=== PATIENT | female | born 1965 | race Two or more races ===

== ENCOUNTER 2024-07-04 13:21 | Emergency (ER) | payer BC, SELFPAY ==
[2024-07-04 13:57] VITALS: BP 160/90; PULSE 105; RESP 19; TEMP 37.3; O2SAT 96; BMI 45.7
--- NOTE | 2024-07-04 14:14 | PD.EDANIML ---
ED Animal Bite RME/HPI General Chief Complaint: Animal Bite Stated Complaint: abdominal pain left dt possible insect bite Time Seen by Provider: 07/04/24 13:37 Source: patient Arrival date/time: 07/04/24 13:21 This is a 58-year-old female presents to the emergency department with complaints of redness and tenderness to her left lower abdominal wall. Patient reports that she noticed a small little bump 2 days ago and while dressing she did scratch it accidentally today she lifted her shirt and she had worsening redness prompting her ED visit today. Patient has not had any fever no chills no rigors no abdominal pain no urinary symptoms. Mode of arrival: ambulatory Limitations: no limitations Related Data Previous Rx's ?Medication ?Instructions ?Recorded clindamycin HCl 300 mg capsule 300 mg PO Q8H 7 days #21 caps 07/04/24 mupirocin 2 % topical ointment 1 applic topical BID 7 days #22 07/04/24 grams Allergies Allergy/AdvReac Type Severity Reaction Status Date / Time Sulfa (Sulfonamide Allergy Severe HIVES AND Verified 10/17/12 01:25 Antibiotics) RASH sulfamethoxazole Allergy Severe HIVES AND Verified 10/17/12 01:25 RASH trimethoprim Allergy Severe HIVES AND Verified 10/17/12 01:25 RASH Review of Systems Review of Systems Systems Reviewed: All systems reviewed, normal except as documented Narrative Review of Systems: Gen: No fever, no chills, no weight loss EYES: No discharge, no visual changes, no pain HEENT: No ear pain, no congestion, no sore throat PULM: No shortness of breath, no cough, no congestion CV: No chest pain, no dyspnea on exertion, no palpitations GI: No nausea, no vomiting, no diarrhea, no pain, no constipation : No frequency, no urgency,? no dysuria Musc/skel: No joint pain, no back pain Skin: Cellulitic rash to abdominal wall Psyc: No hallucinations, no depression Heme/Lymph: No easy bleeding or bruising tendencies Neuro: No weakness, no headache ED Exam General Limitations: Present no limitations General appearance: Present alert and in no apparent distress Head Head exam: Present atraumatic Eye Eye exam: Present normal appearance, PERRL and EOMI ENT ENT exam: Present normal exam, normal oropharynx and mucous membranes moist Neck Neck exam: Present normal inspection, full ROM and trachea midline Chest Chest inspection: Present normal inspection and symmetric chest wall rise Respiratory Respiratory exam: Present normal lung sounds bilaterally Cardiovascular Cardiovascular exam: Present regular rate, normal rhythm and normal heart sounds Abdominal Exam Abdominal exam: Present soft, normal bowel sounds and other ( on the left lower quadrant abdominal wall there is a cellulitic pattern of erythemic indurated area approximately 3 cm x 2 on her abdomen noticed no streaking.); Absent distention, tenderness, guarding, rebound or rigidity Extremities Exam Extremities exam: Present normal inspection and full ROM Back Exam Back exam: Present normal inspection and full ROM Neurological Exam Neurological exam: Present alert, oriented X3 and CN II-XII intact Psychiatric Psychiatric exam: Present normal affect and normal mood Skin Skin exam: Present warm, dry, intact and normal color Course Quality Measures none Orders Category Date Time Status Clindamycin Vial [Cleocin vial] Med 07/04/24 14:10 Discontinued 600 mg IM X1 ONE Vital Signs Vital signs: Vital Signs Temperature 99.1 F 07/04/24 13:57 Pulse Rate 105 H 07/04/24 13:57 Respiratory Rate 19 07/04/24 13:57 Blood Pressure 160/90 H 07/04/24 13:57 Pulse Oximetry (%) 96 07/04/24 13:57 Oxygen Delivery Method Room Air 07/04/24 13:57 Animal Bite Patient data External records reviewed:: [facility] previous records Clinical information provided by:: patient Social determinants that could affect healthcare access:: none Patient has the following chronic illnesses:: no How is presenting disease/condition affected by chronic disease/condition?: no chronic disease Evaluation data The following diagnostics were reviewed and interpreted by me:: other (specify) Lab and/or radiology exams considered but not ordered:: Appears to be cellulitis no imaging needed. Interpretation Summary: no Medications / Prescriptions Medications or Prescriptions considered but not ordered:: yes Rx sent to pharmacy Medication administrations:: Medication Administration History Discontinued Medications Clindamycin Phosphate (Clindamycin Phos Inj 150 Mg/Ml Vial 6 Ml) 600 mg IM X1 ONE Stop: 07/04/24 14:11 Last Admin: 07/04/24 15:44 Dose: 600 mg Documented By: all medications administered and effective Consultations Consultation(s) initiated? (list below): No Diagnosis Differential diagnosis animal bite: bite by animal and cat bite Most likely diagnosis given after review of the tests above:: cellulitis to abdominal wall. Admission Indicated Admission indicated?: not indicated Explain why admission is indicated or not indicated:: This can be treated outpatient if no improvement will need to return to the emergency department for further evaluation and workup. Admission Request Was there a request for admission?: No Disposition Plan Disposition Plan: Discharge Discharge Attestation Discharge Attestation: The patient and all family members were given an opportunity to ask questions and understood the discharge instructions. Discharge instructions specifically effects, indications for sooner follow up or return to the emergency department, and the expected course of current diagnosis. Patient condition: Stable Discharge Plan Plan Patient Disposition: HOME (Self Care) Patient condition on transfer: Stable Prescriptions/Referrals Prescriptions/Med Rec: New clindamycin HCl 300 mg capsule 300 mg PO Q8H 7 Days Qty: 21 0RF mupirocin 2 % ointment 1 applic topical BID 7 Days Qty: 22 0RF Referrals: Demarcus Owens MD [Primary Care Provider] - In 1 week Problem List Clinical Impression: Cellulitis, abdominal wall Patient/Caregiver Discharge Instructions Discharge Activity: activity as tolerated Education Materials: ED Cellulitis Additional Instructions: -Please start antibiotic first dose this afternoon. Keep area clean and dry. -Make sure you do warm compresses 15-20 minutes at a time 3 times a day. Then apply the ointment If you do not see any improvement in swelling or redness by morning please follow-up with your doctor. Otherwise can return to the emergency department for further evaluation. Print Language: Italian Stand Alone Forms: Laine Award Info., Work/School Release, Patient Portal Info Letter SADIE/CELIO Supervising Physician YOVANY Supervising Physician: dr colon
[2024-07-04] MEDS: CLINDAMYCIN PHOS INJ 150 MG/ML VIAL 6 ML 600 MG IM (15:44)
== END 2024-07-04 15:55 | disposition home or self-care (01) ==
PROVIDERS: Emergency Provider Emergency Medicine; PCP Specialist
DX: L03.311 Cellulitis of abdominal wall (principal)
CPT/HCPCS: 96372; 99283; J0736

== ENCOUNTER → 2024-07-09 | Outpatient (CLI) | payer BC, SELFPAY | END | disposition home or self-care (01) | LOC: SLDO 11:28 | PROVIDERS: PCP Specialist; Referring Provider Specialist; Visit Provider Specialist | DX: L02.211 Cutaneous abscess of abdominal wall (principal) | CPT/HCPCS: 87070; 87205 ==

== ENCOUNTER → 2024-10-09 | Outpatient (CLI) | payer BC, SELFPAY ==
--- NOTE | 2024-10-09 | XR_ITS ---
Examination: Fingers, right hand third digit 3 views Technique: AP, oblique, lateral views right hand third digit 3 views. Exam date and time: October 09, 2024 1548 hours INDICATIONS: Right hand third digit deformity noticed beginning 2 weeks ago. 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
--- NOTE | 2024-10-09 14:18 | XR_ITS ---
Examination: AP bilateral knees single view AP lateral left knee 2 views TECHNIQUE: Standing bilateral AP knees single view Standing AP lateral left knee 2 views, total 3 views Exam date and time: May 09, 2025 1447 hours INDICATIONS: History left knee arthroplasty, bilateral knee pain one year. FINDINGS: Moderate to advanced osteoarthritis lateral joint space right knee No right knee fracture Total left knee arthroplasty with satisfactory alignment No fracture IMPRESSION: Moderate to advanced osteoarthritis lateral joint space right knee
== END | disposition home or self-care (01) ==
LOC: CDIM 14:09
PROVIDERS: PCP Specialist; Referring Provider Specialist; Visit Provider Specialist
DX: M17.11 Unilateral primary osteoarthritis, right knee (principal); M25.562 Pain in left knee; Z96.652 Presence of left artificial knee joint; M19.041 Primary osteoarthritis, right hand
CPT/HCPCS: 73140; 73564

== ENCOUNTER → 2024-11-13 | Outpatient (CLI) | payer BC, SELFPAY ==
--- NOTE | 2024-11-13 13:00 | XR_ITS ---
Examination: Screening digital mammography, bilateral Computer aided detection 3-D breast Tomosynthesis, bilateral Date and time of exam: November 13, 2024 1258 hours Compared to mammograms dating to September 07, 2007 Indication: Screening Technique: Nonmagnified MLO, CC views of the breasts to been obtained, reconstructed from 3-D Tomosynthesis images. R2 computer aided detection program utilized for evaluation of suspicious masses and/or abnormal calcifications. 3-D Tomosynthesis images obtained. Findings: Scattered areas of fibroglandular density 10 mm focal asymmetry inner right breast CC view, anterior depth, 4.5 cm from the nipple Impression: BI-RADS Category 0: Incomplete: Need additional imaging evaluation 10 mm focal asymmetry inner right breast CC view, anterior depth, 4.5 cm, nipple Recommend follow-up spot tomographic views retroareolar region right breast as well as right breast sonography to complete the workup
== END | disposition home or self-care (01) ==
PROVIDERS: PCP Specialist; Referring Provider Specialist; Visit Provider Specialist
DX: Z12.31 Encounter for screening mammogram for malignant neoplasm of breast (principal); R92.8 Other abnormal and inconclusive findings on diagnostic imaging of breast; N64.89 Other specified disorders of breast
CPT/HCPCS: 77063; 77067

== ENCOUNTER → 2024-11-15 | Outpatient (CLI) | payer BC, SELFPAY ==
--- NOTE | 2024-11-15 | XR_ITS ---
Examination: Diagnostic digital mammography, unilateral, right Computer aided detection 3-D breast Tomosynthesis, unilateral Date and time of exam: November 07, 2024 1417 hours INDICATIONS: Mammogram November 13, 2024 10 mm focal asymmetry retroareolar right breast Technique: Nonmagnified MLO, CC views of the right breast have been obtained, reconstructed from 3-D Tomosynthesis images. R2 computer aided detection program utilized for evaluation of suspicious masses and/or abnormal calcifications. 3-D Tomosynthesis images obtained. Findings: Scattered areas of fibroglandular density Focal asymmetry remains retroareolar region right breast Impression: BI-RADS category 3: Probably benign findings One additional 6 month right mammogram follow-up is needed to document stability of focal asymmetry inner retroareolar region right breast
--- NOTE | 2024-11-15 13:34 | XR_ITS ---
Examination: Breast ultrasound, unilateral, right complete Date and time of exam: November 15, 2024 1404 hours INDICATIONS: Mammogram November 13, 2024 10 mm focal asymmetry inner right breast Technique: Real-time [place] scale ultrasonographic imaging performed right breast including all 4 quadrants as well as nipple retroareolar and axillary region. Findings: 11:00 cyst 4 x 4 millimeter 11:00 cyst 3 x 5 mm 12:00 cyst 4 x 4 millimeter No solid nodules IMPRESSION: BI-RADS Category 2: Benign findings
== END | disposition home or self-care (01) ==
LOC: CDIM 13:30
PROVIDERS: PCP Specialist; Referring Provider Specialist; Visit Provider Specialist
DX: R92.331 Mammographic heterogeneous density, right breast (principal); N64.89 Other specified disorders of breast; N60.01 Solitary cyst of right breast
CPT/HCPCS: 76641; 77061; 77065; G0279

== ENCOUNTER → 2025-02-10 | Outpatient (CLI) | payer BC, SELFPAY ==
--- NOTE | 2025-02-10 15:51 | XR_ITS ---
Examination: Lumbar spine, 5 views Technique: Lumbar spine AP, lateral, coned lateral lower lumbar spine, bilateral obliques 5 views Exam date and time: February 10, 2025 1618 hours INDICATIONS: Low back presence several years getting worse FINDINGS: Thoracolumbar dextroscoliosis 20 degrees Prominent osteopenia Diffuse lumbar degenerative disc disease, advanced at the lower 2 lumbar levels No spondylolisthesis Mild lumbar spondylosis IMPRESSION: Diffuse lumbar degenerative disc disease, advanced L4-L5, L5-S1
--- NOTE | 2025-02-10 15:51 | XR_ITS ---
EXAMINATION: Cervical spine, 5 views Technique: Cervical spine AP, AP odontoid, lateral, bilateral obliques, 5 views Exam date and time: February 10, 2025 1557 hours Comparison May 18, 2022 INDICATIONS: Neck pain several years getting worse. FINDINGS: Mild to moderate degenerative disc disease C4-C5, C5-C6, C6-C7 including mild bilateral neural foraminal stenosis No cervical fracture Intact odontoid IMPRESSION: [id number] degenerative disc disease C4-C5, C5-C6, C6-C7
== END | disposition home or self-care (01) ==
PROVIDERS: PCP Specialist; Referring Provider Chiropractor; Visit Provider Chiropractor
DX: M50.323 Other cervical disc degeneration at C6-C7 level (principal); M50.322 Other cervical disc degeneration at C5-C6 level; M50.321 Other cervical disc degeneration at C4-C5 level; M51.379 Other intervertebral disc degeneration, lumbosacral region without mention of lumbar back pain or lower extremity pain
CPT/HCPCS: 72050; 72110

== ENCOUNTER → 2025-06-04 | Outpatient (CLI) | payer BC, SELFPAY ==
--- NOTE | 2025-06-04 15:03 | XR_ITS ---
Examination: Diagnostic digital mammography, unilateral, right Computer aided detection 3-D breast Tomosynthesis, unilateral Date and time of exam: 06/04/2025, 3:10 p.m. Comparisons: March 2011 through October 2024 Indications: Follow-up probably benign focal asymmetry Technique: Nonmagnified MLO, CC views of the right breast have been obtained, reconstructed from 3-D Tomosynthesis images. R2 computer aided detection program utilized for evaluation of suspicious masses and/or abnormal calcifications. 3-D Tomosynthesis images obtained. Technologist: Findings: There are scattered areas of fibroglandular density. No evidence of abnormal masses or suspicious calcifications. Stable benign-appearing focal asymmetry Impression: BI-RADS category 2: Benign findings Recommend 1 year follow-up mammogram
== END | disposition home or self-care (01) ==
PROVIDERS: PCP Specialist; Referring Provider Specialist; Visit Provider Specialist
DX: R92.321 Mammographic fibroglandular density, right breast (principal)
CPT/HCPCS: 77061; 77065; G0279

== ENCOUNTER → 2025-07-23 | Outpatient (CLI) | payer BC, SELFPAY ==
[2025-07-23 14:25] LABS: Basophils # (Auto) 0.0 Thou/mm3 (0.0-0.2); Basophils % (Auto) 1 % (0-2.5); Eosinophils # (Auto) 0.1 Thou/mm3 (0.0-0.5); Eosinophils % (Auto) 2 % (0-10); Hematocrit 42.8 % (36.0-46.0); Hemoglobin 14.3 g/dL (12.0-16.0); Immature Granulocytes Auto 0.03 Thou/mm3 (0.00-0.00); Lymphocytes # (Auto) 2.0 Thou/mm3 (1.0-4.8); Lymphocytes % (Auto) 28 % (10-50); Mean Corpuscular HGB Conc 33.4 g/dl (31.0-37.0); Mean Corpuscular Hemoglobin 32.0 pg (25.0-35.0); Mean Corpuscular Volume 96 fL (80-100); Monocytes # (Auto) 0.5 Thou/mm3 (0.0-0.8); Monocytes % (Auto) 7 % (0-12); Neutrophils # (Auto) 4.3 Thou/mm3 (1.8-7.7); Neutrophils % (Auto) 61 % (37-80); Nucleated Red Blood Cell # 0.00 Thou/mm3 (0.00-0.00); Nucleated Red Blood Cell % 0 /100 WBC (0); Platelet Count 338 Thou/mm3 (140-440); RDW Standard Deviation 47.3 fL (36.4-46.3); Red Blood Count 4.47 Miln/mm3 (4.00-5.20); White Blood Count 7.0 Thou/mm3 (3.6-11.0)
[2025-07-23 14:34] LABS: Glucose Estimated Average 108 mg/dL (80-131); Hemoglobin A1C 5.4 % Hgb (4.8-6.0)
[2025-07-23 14:42] LABS: Alanine Aminotransferase 87 U/L (10-49); Albumin, Serum 4.9 gm/dL (3.5-5.0); Albumin/Globulin Ratio 2.0 (1.2-2.2); Alkaline Phosphatase 77 U/L (46-116); Anion Gap 10 (7-16); Aspartate Amino Transferase 53 U/L (0-34); BUN/Creatinine Ratio 14 Ratio (12-20); Bilirubin,Total 0.4 mg/dL (0.3-1.2); Blood Urea Nitrogen 10 mg/dL (9-23); Calcium 9.6 mg/dL (8.3-10.6); Calcium (Corrected) 9.6 mg/dL (8.5-10.1); Carbon Dioxide 24.8 mMol/L (20.0-31.0); Cardiac Risk Estimate 3.3 RATIO (3.7-5.6); Chloride 105 mMol/L (98-107); Cholesterol 261 mg/dL (132-200); Creatinine (Component) 0.7 mg/dL (0.6-1.3); Free T4 (Free Thyroxine) 1.40 ng/dL (0.89-1.76); Globulin 2.5 gm/dL (2.3-3.5); Glucose 112 mg/dL (74-106); HDL Cholesterol 78 mg/dL (40-60); LDL Cholesterol,Calculated 152 mg/dL (0-130); Osmolality,Calculated 279 (275-295); Potassium 4.4 mMol/L (3.4-5.1); Sodium 140 mMol/L (136-145); Thyroid Stimulating Hormone 2.92 uIU/mL (0.55-4.78); Total Protein 7.4 gm/dL (5.7-8.2); Triglycerides 156 mg/dL (30-150); eGFR > 60 See Note
[2025-07-29 07:42] LABS: T3,Total* 110 ng/dL (76-181)
== END | disposition home or self-care (01) ==
LOC: COPL 13:39
PROVIDERS: PCP Specialist; Referring Provider Nurse Practitioner Family; Visit Provider Specialist
DX: E66.813 Obesity, class 3 (principal); I10 Essential (primary) hypertension; E55.9 Vitamin D deficiency, unspecified; E66.01 Morbid (severe) obesity due to excess calories; G56.03 Carpal tunnel syndrome, bilateral upper limbs; M17.0 Bilateral primary osteoarthritis of knee; M21.40 Flat foot [pes planus] (acquired), unspecified foot; M25.50 Pain in unspecified joint; M54.50 Low back pain, unspecified; M65.321 Trigger finger, right index finger; M79.18 Myalgia, other site; R06.83 Snoring; R53.83 Other fatigue; R70.0 Elevated erythrocyte sedimentation rate
CPT/HCPCS: 36415; 80053; 80061; 83036; 84439; 84443; 84480; 85025